=== PATIENT | male | born 1965 | race Caucasian/White ===

== ENCOUNTER 2023-01-31 15:38 | Outpatient (RCR) | payer OTHER ==
[2023-01-31 16:12] LABS: EOSINOPHILS # (AUTO) 0.1 10^3/uL (0.0-0.3); EOSINOPHILS % (AUTO) 1 % (0-10); HEMOGLOBIN 13.9 g/dL (13.3-17.7)
[2023-01-31 16:13] LABS: BASOPHILS % (AUTO) 0 % (0-10); HEMATOCRIT 39 % (40-54); LYMPHOCYTES # (AUTO) 1.5 10^3/uL (1.0-4.0); LYMPHOCYTES % (AUTO) 24 % (12-44); MEAN CORPUSCULAR HEMOGLOBIN 34 pg (25-34); MEAN CORPUSCULAR HGB CONC 36 g/dL (32-36); MEAN CORPUSCULAR VOLUME 94 fL (80-99); MEAN PLATELET VOLUME 10.9 fL (9.0-12.2); MONOCYTES # (AUTO) 0.8 10^3/uL (0.0-1.0); MONOCYTES % (AUTO) 12 % (0-12); NEUTROPHILS # (AUTO) 3.9 10^3/uL (1.8-7.8); NEUTROPHILS % (AUTO) 63 % (42-75); PLATELET COUNT 92 10^3/uL (130-400); WHITE BLOOD COUNT 6.2 10^3/uL (4.3-11.0)
[2023-01-31 16:35] LABS: INR 1.2 (0.8-1.4); PROTHROMBIN TIME PATIENT 15.8 SEC (12.2-14.7)
== END 2023-02-28 | disposition home or self-care (01) ==
LOC: ONC 15:38
PROVIDERS: ATTEND Internal Medicine Hematology & Oncology
DX: K74.60 Unspecified cirrhosis of liver (principal); B19.20 Unspecified viral hepatitis C without hepatic coma; E11.9 Type 2 diabetes mellitus without complications
CPT/HCPCS: 82728; 83540; 83550; 85025; 85610; 85730

== ENCOUNTER 2023-02-07 07:36 | Outpatient (CLI) | payer BC, OTHER ==
[~2023-02-07] VITALS: Ht 175 cm; Wt 101.3 kg
[2023-02-07] VITALS (13 sets, daily range): BP systolic 99–136; BP diastolic 56–88
[2023-02-07] MEDS ORDERED: NS IV 1000 ML 1,000 ML IV STA (08:29)
[2023-02-07] MEDS ORDERED: fentaNYL INJ 100 MCG/2 ML AMP IVP ONE (08:30)
[2023-02-07] MEDS ORDERED: LIDOCAINE 1% INJ 10 ML VIAL INJ ONE ×2 (08:30→11:00)
[2023-02-07] MEDS ORDERED: MIDAZOLAM 2 MG/2 ML (VERSED) VIAL IVP ONE (08:30)
[2023-02-07 08:45] LABS: HEMOGLOBIN 14.6 g/dL (13.3-17.7); MEAN PLATELET VOLUME 11.8 fL (9.0-12.2); WHITE BLOOD COUNT 5.6 10^3/uL (4.3-11.0)
[2023-02-07 09:10] LABS: INR 1.2 (0.8-1.4); PROTHROMBIN TIME PATIENT 15.7 SEC (12.2-14.7)
--- NOTE | 2023-02-07 12:46 | Diagnostic Imaging Report ---
INDICATION: Abdominal fluid. Patient presents for CT-guided drainage prior to a liver biopsy. TECHNIQUE: All CT scans use one or more of the following dose optimizing techniques: automated exposure control, MA and/or KvP adjustment based on patient size and exam type or iterative reconstruction. Patient brought to the CT suite placed table in the supine position. Axial imaging through the abdomen was performed to evaluate appropriate entry site. Right abdomen was then prepped and draped in usual sterile fashion. Small amount 1% lidocaine was utilized for local anesthesia. Yueh needle was advanced into the right abdomen into the right abdominal fluid. This was exchanged over an 035 guidewire. Tract was dilated with 6 and 8-Burmese dilators. 8.5-Burmese all-purpose pigtail drain was advanced into right abdomen. A total of approximately 4500 mL of fluid was removed. Catheter was withdrawn and hemostasis was obtained. Patient tolerated procedure well. IMPRESSION: Successful CT-guided pigtail catheter placement and fluid drainage, obtaining 4500 mL of fluid. Dictated by: Dictated on workstation # [id number]
--- NOTE | 2023-02-07 13:00 | Diagnostic Imaging Report ---
INDICATION: Liver mass. Patient presents for biopsy. TECHNIQUE: All CT scans use one or more of the following dose optimizing techniques: automated exposure control, MA and/or KvP adjustment based on patient size and exam type or iterative reconstruction. FINDINGS: Axial imaging through the abdomen was performed after the patient underwent CT-guided paracentesis. The right abdomen was prepped and draped in the usual sterile fashion. A small amount of 1% lidocaine was utilized for local anesthesia. The procedure was performed utilizing conscious sedation with Radiology nursing and constant patient monitoring. The patient was given a total of 50 mcg of fentanyl and 1 mg of Versed intravenously. The total procedure time was approximately 16 minutes. An 18-gauge coaxial Temno needle was advanced from a right abdominal approach near the mid axillary line. The needle was advanced into the upper portion of the right lobe of the liver. Multiple core biopsies were obtained. The needle was removed and hemostasis was obtained. Followup imaging shows no complicating features. The patient tolerated the procedure well and left the Department in stable condition. IMPRESSION: Successful CT-guided right lobe liver biopsy utilizing conscious sedation. Pathology results are currently pending. Dictated by: Dictated on workstation # [id number]
--- NOTE | 2023-02-07 14:08 | Diagnostic Imaging Report ---
INDICATION: Status post liver biopsy. TIME OF EXAM: 1:07 PM. FINDINGS: The heart size is normal. The lungs are clear. No infiltrates are seen. There is no pneumothorax. IMPRESSION: No acute feature is detected. Dictated by: Dictated on workstation # [id number]
--- NOTE | 2023-02-07 15:33 | Pre-Op Note & Conscious Sedat ---
Pre-Operative Progress Note Date of Available H&P: February 07, 2023 Date H&P Reviewed: February 07, 2023 Time H&P Reviewed: 09:00 Pre-Op Diagnosis: Liver mass Moderate Sedation PreProcedure Time 09:00 ASA Score 2 Airway Lungs Heart ASA score ASA 1: a normal healthy patient ASA 2: a patient with a mild systemic disease (mid diabetes, controlled hypertension, obesity ASA 3: a patient with a severe systemic disease that limits activity (angina, COPD, prior Myocardial infarction) ASA 4: a patient with an incapacitating disease that is a constant threat to life (CHF, renal failure) ASA 5: a moribund patient not expected to survive 24 hrs. (ruptured aneurysm) ASA 6: a declared brain- patient whose organs are being harvested. For emergent operations, add the letter E after the classification Mallampati Classification Grade 2 Sedation Plan Analgesia, Amnesia, Plan communicated to team members, Discussed options with patient/fam, Discussed risks with patient/fam The patient is an appropriate candidate to undergo the planned procedure, sedation, and anesthesia. The patient immediately re-assessed prior to indication. CURLY URBANO MD February 07, 2023 15:33
== END 2023-02-07 14:55 ==
LOC: SDC 07:36
PROVIDERS: ATTEND Family Medicine
DX: R16.0 Hepatomegaly, not elsewhere classified (principal)
CPT/HCPCS: 36415; 71045; 77012; 85027; 85610; 85730; 99156; 99157

== ENCOUNTER 2023-03-27 08:14 | Outpatient (RCR) | payer BC, OTHER | END 2023-03-30 | disposition home or self-care (01) | LOC: ONC 08:14 | PROVIDERS: ATTEND Internal Medicine Hematology & Oncology | DX: K74.60 Unspecified cirrhosis of liver (principal); B19.20 Unspecified viral hepatitis C without hepatic coma; E11.9 Type 2 diabetes mellitus without complications ==